=== PATIENT | female | born 2000 ===

== ENCOUNTER 2024-12-23 07:56 | Inpatient (IN) ==
[2024-12-23] MEDS ORDERED: LIDOCAINE 1% LOCAL 20 ML VIAL INFIL PRN (07:59)
--- NOTE | 2024-12-23 08:02 | History & Physical Report ---
Date of Service December 23, 2024 Assessment & Plan (1) Obesity affecting , antepartum: (2) Encounter for induction of labor: Plan admit, pitocin iol, epidural on demand, arom when indicated. fetus category one. anticipate . Admission and Anticipated Discharge Date Admission Date: December 23, 2024 History of Present Illness Chief Complaint: iol Primary Care Provider: NO PCP Patient is a 4yowf with iup at 39 5/7 weeks who is having iol for obesity. Notes good FM, occasional contractions. no lof. Had some VB last night after martinez placed, minimal today. Had a martinez bulb placed last night. and Delivery Plans Obesity (BMI 40 and higher @ beginning of ) *Growth US @ 32wks *Weekly NSTs @ 34wks *BMI 40 or greater offer detailed/level II anatomy at [facility] *BMI 40 or above offer delivery by [facility] - scheduled for 12/23/2024 *BMI 50 or greater scheduled detailed/level II anatomy at [facility] Late presentation @ 29+ weeks Current every day vaping Hep B nonimmune OB Labs: Blood Type O Positive 10/14/24 Antibody Screen NEGATIVE 10/14/24 Hgb 12.0 g/dl (12.0-16.0) 10/14/24 Hct 35.6 % (37.0-47.0) L 10/14/24 MCV 95.4 fL (80.0-100.0) 10/14/24 Plt Count 217 K/uL (130-400) 10/14/24 Rubella IgG Antibody Equivocal (Immune) L 10/14/24 Treponema pallidum Ab Negative (Negative) 10/14/24 Hep Bs Antigen Negative (Negative) 10/14/24 Hepatitis C Antibody Negative (Negative) 10/14/24 HIV 1&2 Ab/P24 Ag 4thGn Negative (Negative) 10/14/24 Glucose 1 Hr 50 gm 126 mg/dl (70-130) 10/14/24 OB Optional Labs: Chlamydia trachomatis RNA Not Detected (NotDetected) 10/14/24 Neisseria gonorrhoeae RNA Not Detected (NotDetected) 10/14/24 gbs neg Allergies Allergy/AdvReac Type Severity Reaction Status Date / Time No Known Allergies Allergy Verified 12/21/24 09:53 Home Medications Medication Instructions Recorded Confirmed Type PNV no.[id number] 1 tab PO DAILY 10/12/24 12/21/24 History [ Gummies] Patient History Medical History Varicella vaccination Surgical History S/P wisdom tooth extraction S/P tonsillectomy and adenoidectomy Family History Father Diabetes Grandmother (Paternal) Heart disease Denies family history of Ovarian cancer Breast cancer Colorectal cancer Social History Smoking Status: Current every day smoker Tobacco Type: E-cigarettes / Vaping Do You Dip or Chew Tobacco: No; Hx Alcohol Use: No Hx Substance Use: No marital status: marital status details: Vlad Oliveros (28) [phone] Current Living Situation: Spouse Current Living Situation Comment: lives with spouse, dogs current occupational status: employed current occupation: [employer] Feels Safe at Home: Yes OB History g1--present FOURTH MATE History noncontributory Physical Exam Constitutional: WD/WN, vitals as above Gastrointestinal (Abdomen): soft, gravid, obese Psychiatric: A+Ox3, euthymic affect Genitourinary: cx--3.5/75/-2/mid/soft toco--rare efm--145 with mod variability, accels to 160s no decels martinez was in on admission and removed with gentle tug. Coding Level of Care Code None Diagnoses Obesity affecting , antepartum O99.210 Encounter for induction of labor Z34.90
[2024-12-23 08:34] LABS: Hematocrit (blood only) 39.6 % (37.0-47.0); Hemoglobin 13.0 g/dl (12.0-16.0); Mean Corpuscular Hemoglobin 30.4 pg (25.0-34.0); Mean Corpuscular Volume 92.7 fL (80.0-100.0); Platelet Count 226 K/uL (130-400); RDW Standard Deviation 43.9 fL (36.4-46.3); Red Blood Count 4.27 M/uL (4.20-5.40); White Blood Count 15.34 K/ul (4.8-10.8)
[2024-12-23] MEDS: LACTATED RINGER'S 1,000 ML IV PRN (09:20)
[2024-12-23] MEDS: OXYTOCIN 30 UNITS/NSS 30 UNITS/500 ML BAG IV PRN ×2 (09:21→09:24)
--- NOTE | 2024-12-23 12:22 | Labor Progress Brief Note ---
Date of Service December 23, 2024 Subjective Patient noting contractions, but not wanting pain management at this time Assessment & Plan (1) Encounter for induction of labor: Plan continue current management. fetus category one. Admission and Anticipated Discharge Date Admission Date: December 23, 2024 Physical Exam Physical Exam: cx--3-4/80/-2 arom clear fluid toco--q1-3min, pit at 8 efm--140s with mod varaibility, accels to 160s, no decels Results & Data Vital Signs (Past 12 Hours) Vital Signs Temp Pulse Resp BP 12/23/24 11:42 70 12/23/24 11:42 113/54 L 12/23/24 10:36 64 12/23/24 10:36 109/58 L 12/23/24 10:30 18 12/23/24 10:30 36.7 C 18 12/23/24 09:27 73 12/23/24 09:27 117/57 L 12/23/24 08:11 37.2 C 102 H 18 108/60 Coding Level of Care Code None Diagnoses Encounter for induction of labor Z34.90
[2024-12-23] MEDS: fentANYL 2 MCG/ML BUPIVacaine 0.125%-NSS 100ML BAG ONE (18:00)
[2024-12-23] MEDS: LIDOCAINE 2%/EPINEPHRINE 1:200,000 20 ML PF ONE (18:00)
[2024-12-23] MEDS: BUPIVACAINE 0.25% PF 30 ML VIAL ONE (18:00)
--- NOTE | 2024-12-23 18:10 | Anesthesiology Consultation ---
Date of Service December 23, 2024 Assessment & Plan Chart Review Chart Review: Acceptable Risk for Labor Epidural Consults Requested none History Height/Weight Height: 5 ft 5 in Weight: 126.552 kg Allergies Allergy/AdvReac Type Severity Reaction Status Date / Time No Known Allergies Allergy Verified 12/21/24 09:53 Medications Home Medications Medication Instructions Recorded Confirmed Last Taken PNV no.[id number]-mdl-aylm 1 tab PO DAILY 10/12/24 12/23/24 12/23/24 [ Gummies] 0700 Active Medications Generic Name Dose Route Start Last Admin Trade Name Freq PRN Reason Stop Dose Admin Oxytocin 30 units in 500 mls @ 10 mls/hr 12/23/24 07:59 12/23/24 16:25 Pitocin 30 Units/Nss IV 12/25/24 07:58 0.6 units/hr .Q24H PRN 10 mls/hr Labor Induction/Augmentation Titration Protocol 0.6 UNITS/HR Lactated Ringer's 1,000 mls @ 125 mls/hr 12/23/24 07:59 12/23/24 13:53 Lr IV 12/25/24 07:58 125 mls/hr .Q8H PRN Administration L&D Protocol Protocol Past Medical History Medical History Varicella vaccination Past Family History Family History Father Diabetes Grandmother (Paternal) Heart disease Denies family history of Ovarian cancer Breast cancer Colorectal cancer Past Surgical History Surgical History S/P wisdom tooth extraction S/P tonsillectomy and adenoidectomy Social History Smoking Status: Current every day smoker Do You Dip or Chew Tobacco: No Hx Alcohol Use: No Hx Substance Use: No substance use type: does not use Physical Exam Vital Signs Last Vital Signs Temp 37.1 C 12/23/24 18:00 Pulse 69 12/23/24 18:07 Resp 18 12/23/24 18:00 BP 107/55 L 12/23/24 18:07 Pulse Ox 99 12/23/24 18:07 Testing Laboratory Results 12/23/24 08:04 Blood Type O Positive 12/23/24 08:04 Antibody Screen NEGATIVE 12/23/24 08:04
[2024-12-23] MEDS ORDERED: diphenhydrAMINE 50 MG/ML VIAL IV PRN (18:11)
[2024-12-23] MEDS ORDERED: NALOXONE HCL 0.4 MG/1 ML VIAL/CARP IV PRN (18:11)
[2024-12-23] MEDS ORDERED: SODIUM CHLORIDE 0.9% PF INJ 10 ML VIAL EPI PRN (18:11)
[2024-12-23] MEDS ORDERED: ROPIVACAINE 0.5% PF 5 MG/ML 20 ML VIAL EPI PRN (18:11)
[2024-12-23] MEDS ORDERED: NALBUPHINE HCL INJ 10 MG/ML AMP IV PRN (18:11)
[2024-12-23] MEDS ORDERED: NALOXONE HCL 1 MG in SODIUM CHLORIDE 0.9% 1,000 ML IV PRN (18:11)
[2024-12-23] MEDS ORDERED: BUPIVACAINE 0.25% PF 30 ML VIAL EPI PRN (18:11)
[2024-12-23] MEDS ORDERED: LIDOCAINE 2% MPF LOCAL 5 ML VIAL EPI PRN (18:11)
[2024-12-23] MEDS: BUPIVACAINE 0.25% PF 30 ML VIAL EPI STA (18:33)
[2024-12-23] MEDS: SODIUM CHLORIDE 0.9% PF INJ 10 ML VIAL ONE (18:33)
[2024-12-23] MEDS: LIDOCAINE 2%/EPINEPHRINE 1:200,000 20 ML PF EPI STA (18:34)
[2024-12-23] MEDS: SODIUM CHLORIDE 0.9% PF INJ 10 ML VIAL EPI STA (18:34)
--- NOTE | 2024-12-23 19:47 | Labor Progress Brief Note ---
Date of Service December 23, 2024 Subjective Comfortable with epidural. Assessment & Plan (1) Encounter for induction of labor: Plan: status reassuring, some cervical change since I first examined her this morning, and will assess for ongoing progress vs tolerance of the labor process. Not yet in active labor. No need to change plan at this time and pt agreeable to continue IOL. Admission and Anticipated Discharge Date Admission Date: December 23, 2024 Physical Exam Genitourinary: IUPC and FSE in place per request of patient and nursing team this morning. LOF clear. FHT Cat 1 [place] Q2-4, pit @ 10 Cervix 3.5/80/-2, which officially is not a change, however I note that prior exam this morning reported as the same was by a different physician. I do feel there has been some change between when I placed her IUPC/FSE earlier and now. It is not as much as I'd hoped, but the patient is not in active labor and only this afternoon reached the point of discomfort where she requested an epidural. Pelvic adequacy is estimated to be present, and I feel it is too early to diagnose a failed induction. Results & Data Vital Signs (Past 12 Hours) Vital Signs Temp Pulse Resp BP Pulse Ox 12/23/24 19:42 100 12/23/24 19:42 57 L 12/23/24 19:42 113/65 12/23/24 19:37 100 12/23/24 19:37 63 12/23/24 19:34 93 12/23/24 19:34 60 12/23/24 19:32 100 12/23/24 19:32 60 12/23/24 19:27 100 12/23/24 19:27 56 L 12/23/24 19:27 127/66 12/23/24 19:22 100 12/23/24 19:22 66 12/23/24 19:17 100 12/23/24 19:17 57 L 12/23/24 19:12 100 12/23/24 19:12 58 L 12/23/24 19:12 116/58 L 12/23/24 19:07 100 12/23/24 19:07 65 12/23/24 19:02 100 12/23/24 19:02 56 L 12/23/24 18:57 100 12/23/24 18:57 57 L 12/23/24 18:56 54 L 12/23/24 18:56 114/61 12/23/24 18:52 100 12/23/24 18:52 57 L 12/23/24 18:47 100 12/23/24 18:47 58 L 12/23/24 18:45 18 12/23/24 18:45 18 12/23/24 18:43 58 L 12/23/24 18:43 116/58 L 12/23/24 18:42 100 12/23/24 18:42 57 L 12/23/24 18:37 100 12/23/24 18:37 56 L 12/23/24 18:32 100 12/23/24 18:32 60 12/23/24 18:30 18 12/23/24 18:30 18 12/23/24 18:27 100 12/23/24 18:27 58 L 12/23/24 18:27 56 L 12/23/24 18:27 111/53 L 12/23/24 18:22 100 12/23/24 18:22 63 12/23/24 18:17 100 12/23/24 18:17 66 12/23/24 18:15 18 12/23/24 18:15 18 12/23/24 18:12 100 12/23/24 18:12 61 12/23/24 18:11 61 12/23/24 18:11 102/51 L 12/23/24 18:09 63 12/23/24 18:09 109/55 L 12/23/24 18:07 99 12/23/24 18:07 69 12/23/24 18:07 107/55 L 12/23/24 18:05 113/61 12/23/24 18:03 65 12/23/24 18:03 99/57 L 12/23/24 18:02 99 12/23/24 18:02 66 12/23/24 18:01 66 12/23/24 18:01 101/56 L 12/23/24 18:00 20 12/23/24 18:00 97.9 F 20 12/23/24 18:00 18 12/23/24 18:00 18 12/23/24 17:59 63 12/23/24 17:59 97/54 L 12/23/24 17:57 100 12/23/24 17:57 68 12/23/24 17:56 62 12/23/24 17:56 102/56 L 12/23/24 17:52 99 12/23/24 17:52 65 12/23/24 17:49 66 12/23/24 17:49 99/58 L 12/23/24 17:47 100 12/23/24 17:47 65 12/23/24 17:42 100 12/23/24 17:42 72 12/23/24 17:37 100 12/23/24 17:37 64 12/23/24 17:32 100 12/23/24 17:32 63 12/23/24 17:27 99 12/23/24 17:27 63 12/23/24 17:22 99 12/23/24 17:22 60 12/23/24 17:15 65 12/23/24 17:15 118/70 12/23/24 16:15 70 12/23/24 16:15 97/55 L 12/23/24 16:00 18 12/23/24 16:00 98.8 F 18 12/23/24 15:14 64 12/23/24 15:14 106/56 L 12/23/24 14:15 58 L 12/23/24 14:15 99/54 L 12/23/24 14:00 20 12/23/24 14:00 97.9 F 20 12/23/24 13:13 62 12/23/24 13:13 117/60 12/23/24 12:30 18 12/23/24 12:30 98.2 F 18 12/23/24 11:42 70 12/23/24 11:42 113/54 L 12/23/24 10:36 64 12/23/24 10:36 109/58 L 12/23/24 10:30 18 12/23/24 10:30 98.1 F 18 12/23/24 09:27 73 12/23/24 09:27 117/57 L 12/23/24 08:11 99.0 F 102 H 18 108/60 Coding Level of Care Code None Diagnoses Encounter for induction of labor Z34.90
[2024-12-24] MEDS: fentANYL 2 MCG/ML BUPIVacaine 0.125%-NSS 100ML BAG EPI PRN (03:45)
--- NOTE | 2024-12-24 10:37 | Labor Progress Brief Note ---
Date of Service December 24, 2024 Subjective confortable with epidural. May be feeling some intermittent pressure Assessment & Plan (1) Encounter for induction of labor: Plan going to start pushing and see how she does. fetus overall reassuring. I am concerned about the shape of her pelvis and the lack of descent of the fetus in the last two hours. Discussed that at this point she has to push the baby out and if not/no descent, will proceed with c/s. Hopefully baby will tolerate pushing. Admission and Anticipated Discharge Date Admission Date: December 23, 2024 Physical Exam Physical Exam: cx--c/c/0, can still feel a bit of cervix all the way around but the head is coming through toco--q2-3, pit at 11, did have another episode of hyperstim efm--140s with mod variability, accels present, decel with hyperstim but resolved with position change and fluids flat pubic arch Results & Data Vital Signs (Past 12 Hours) Vital Signs Temp Pulse Resp BP Pulse Ox 12/24/24 10:27 99 12/24/24 10:27 62 12/24/24 10:27 65 131/78 12/24/24 10:22 63 99 12/24/24 10:17 64 98 12/24/24 10:12 66 106/55 L 98 12/24/24 10:07 64 99 12/24/24 10:02 64 99 12/24/24 09:57 100 12/24/24 09:57 69 12/24/24 09:57 65 132/77 12/24/24 09:52 68 99 12/24/24 09:47 65 99 12/24/24 09:43 73 131/87 12/24/24 09:42 76 100 12/24/24 09:37 68 99 12/24/24 09:32 66 99 12/24/24 09:27 71 99 12/24/24 09:26 70 122/76 12/24/24 09:22 64 100 12/24/24 09:17 61 100 12/24/24 09:12 63 99 12/24/24 09:11 59 L 128/75 12/24/24 09:07 76 99 12/24/24 09:02 64 100 12/24/24 09:00 18 12/24/24 09:00 36.5 C 18 12/24/24 08:57 100 12/24/24 08:57 64 12/24/24 08:57 62 120/70 12/24/24 08:52 66 100 12/24/24 08:47 65 100 12/24/24 08:42 65 118/69 99 12/24/24 08:37 66 99 12/24/24 08:32 81 99 12/24/24 08:27 66 100 12/24/24 08:26 82 126/78 12/24/24 08:22 68 99 12/24/24 08:17 67 99 12/24/24 08:12 64 99 12/24/24 08:11 67 121/69 12/24/24 08:07 70 99 12/24/24 08:02 70 100 12/24/24 07:57 66 128/77 100 12/24/24 07:52 69 100 12/24/24 07:47 65 100 12/24/24 07:42 68 100 12/24/24 07:41 69 130/84 12/24/24 07:37 83 100 12/24/24 07:32 74 99 12/24/24 07:27 70 99 12/24/24 07:26 70 137/90 12/24/24 07:22 74 100 12/24/24 07:17 65 100 12/24/24 07:12 100 12/24/24 07:12 83 12/24/24 07:12 67 128/82 12/24/24 07:11 71 94 12/24/24 07:09 71 142/88 H 12/24/24 07:07 68 99 12/24/24 07:02 76 99 12/24/24 07:00 18 12/24/24 07:00 36.7 C 18 12/24/24 06:58 72 124/76 12/24/24 06:57 73 100 12/24/24 06:52 71 100 12/24/24 06:47 73 99 12/24/24 06:43 72 132/82 12/24/24 06:42 70 99 12/24/24 06:37 63 98 12/24/24 06:32 63 97 12/24/24 06:27 97 12/24/24 06:27 66 12/24/24 06:27 60 120/67 12/24/24 06:22 64 98 12/24/24 06:17 69 99 12/24/24 06:12 61 97 12/24/24 06:11 64 122/65 12/24/24 06:07 64 98 12/24/24 06:02 63 97 12/24/24 05:57 67 130/68 97 12/24/24 05:52 77 98 12/24/24 05:47 63 97 12/24/24 05:42 65 119/73 98 12/24/24 05:37 66 97 12/24/24 05:32 64 97 12/24/24 05:27 98 12/24/24 05:27 64 12/24/24 05:27 61 115/65 12/24/24 05:22 61 97 12/24/24 05:17 61 98 12/24/24 05:12 99 12/24/24 05:12 57 L 12/24/24 05:12 59 L 119/75 12/24/24 05:07 63 99 12/24/24 05:02 61 99 12/24/24 04:57 100 12/24/24 04:57 60 12/24/24 04:57 77 103/63 12/24/24 04:52 65 99 12/24/24 04:47 59 L 99 12/24/24 04:42 99 12/24/24 04:42 60 12/24/24 04:42 57 L 109/65 12/24/24 04:37 57 L 99 12/24/24 04:32 59 L 99 12/24/24 04:28 61 101/56 L 12/24/24 04:27 61 99 12/24/24 04:22 60 98 12/24/24 04:17 54 L 98 12/24/24 04:13 56 L 116/64 12/24/24 04:12 57 L 98 12/24/24 04:07 62 96 12/24/24 04:02 52 L 98 12/24/24 03:57 52 L 97 12/24/24 03:56 53 L 115/67 12/24/24 03:52 55 L 97 12/24/24 03:47 54 L 97 12/24/24 03:42 53 L 109/63 97 12/24/24 03:37 54 L 97 12/24/24 03:32 53 L 96 12/24/24 03:27 55 L 97 12/24/24 03:26 53 L 107/62 12/24/24 03:22 51 L 99 12/24/24 03:17 54 L 99 12/24/24 03:12 54 L 99 12/24/24 03:11 52 L 114/72 12/24/24 03:07 54 L 99 12/24/24 03:02 54 L 99 12/24/24 03:00 18 12/24/24 03:00 18 12/24/24 02:57 63 98 12/24/24 02:55 18 12/24/24 02:55 36.8 C 18 12/24/24 02:52 60 98 12/24/24 02:47 62 98 12/24/24 02:42 75 95 12/24/24 02:41 63 104/58 L 12/24/24 02:37 63 97 12/24/24 02:32 72 98 12/24/24 02:27 65 97 12/24/24 02:26 67 109/62 12/24/24 02:22 68 96 12/24/24 02:17 66 96 12/24/24 02:12 78 97 12/24/24 02:11 69 110/61 12/24/24 02:07 67 98 12/24/24 02:02 66 98 12/24/24 01:57 98 12/24/24 01:57 69 12/24/24 01:57 70 106/60 12/24/24 01:52 70 97 12/24/24 01:47 77 97 12/24/24 01:43 79 112/61 12/24/24 01:42 80 97 12/24/24 01:37 77 96 12/24/24 01:32 76 96 12/24/24 01:27 66 96 12/24/24 01:26 60 109/60 12/24/24 01:22 65 96 12/24/24 01:17 63 97 12/24/24 01:12 71 97 12/24/24 01:11 63 106/59 L 12/24/24 01:07 65 97 12/24/24 01:02 68 96 12/24/24 00:57 97 12/24/24 00:57 63 12/24/24 00:57 64 107/65 12/24/24 00:52 68 97 12/24/24 00:47 67 97 12/24/24 00:42 97 12/24/24 00:42 68 12/24/24 00:42 66 109/61 12/24/24 00:37 68 97 12/24/24 00:32 68 97 12/24/24 00:27 72 96 12/24/24 00:26 67 119/61 12/24/24 00:22 68 97 12/24/24 00:17 69 97 12/24/24 00:12 97 12/24/24 00:12 68 12/24/24 00:12 63 122/61 12/24/24 00:07 70 99 12/24/24 00:02 65 99 12/23/24 23:57 98 12/23/24 23:57 63 12/23/24 23:56 60 12/23/24 23:56 106/58 L 12/23/24 23:52 98 12/23/24 23:52 62 12/23/24 23:47 98 12/23/24 23:47 65 12/23/24 23:43 65 12/23/24 23:43 105/55 L 12/23/24 23:42 99 12/23/24 23:42 67 12/23/24 23:37 98 12/23/24 23:37 60 12/23/24 23:32 99 12/23/24 23:32 67 12/23/24 23:30 18 12/23/24 23:30 18 12/23/24 23:28 65 12/23/24 23:28 107/69 12/23/24 23:27 98 12/23/24 23:27 62 12/23/24 23:22 99 12/23/24 23:22 62 12/23/24 23:17 98 12/23/24 23:17 61 12/23/24 23:12 98 12/23/24 23:12 60 12/23/24 23:11 61 12/23/24 23:11 99/55 L 12/23/24 23:07 100 12/23/24 23:07 63 12/23/24 23:02 99 12/23/24 23:02 64 12/23/24 23:00 16 12/23/24 23:00 16 12/23/24 22:57 99 12/23/24 22:57 66 12/23/24 22:56 65 12/23/24 22:56 101/58 L 12/23/24 22:52 99 12/23/24 22:52 66 12/23/24 22:47 99 12/23/24 22:47 68 12/23/24 22:42 98 12/23/24 22:42 62 12/23/24 22:41 62 12/23/24 22:41 102/50 L 12/23/24 22:37 98 12/23/24 22:37 59 L Coding Level of Care Code None Diagnoses Encounter for induction of labor Z34.90
--- NOTE | 2024-12-24 11:39 | Labor Progress Brief Note ---
Date of Service December 24, 2024 Subjective pushing with good effort Assessment & Plan (1) Encounter for induction of labor: Plan making slow progress, fetus reassuring. Admission and Anticipated Discharge Date Admission Date: December 23, 2024 Physical Exam Physical Exam: cx--c/c+2 toco--q2-5min efm--150s wtih mod variability, variables with pushing. Results & Data Vital Signs (Past 12 Hours) Vital Signs Temp Pulse Resp BP Pulse Ox 12/24/24 11:34 69 96 12/24/24 11:26 76 126/67 12/24/24 11:23 88 87 L 12/24/24 11:18 92 H 91 12/24/24 11:13 89 L 12/24/24 11:13 84 12/24/24 11:13 84 94 12/24/24 11:12 77 123/75 12/24/24 11:07 95 12/24/24 11:07 86 12/24/24 11:07 73 92 12/24/24 11:02 97 12/24/24 11:02 74 12/24/24 11:02 72 92 12/24/24 11:00 22 12/24/24 11:00 37.1 C 22 12/24/24 10:57 96 12/24/24 10:57 67 12/24/24 10:57 70 123/59 L 12/24/24 10:55 80 93 12/24/24 10:52 68 98 12/24/24 10:47 68 97 12/24/24 10:42 72 99 12/24/24 10:41 68 122/70 12/24/24 10:37 64 100 12/24/24 10:32 73 100 12/24/24 10:27 99 12/24/24 10:27 62 12/24/24 10:27 65 131/78 12/24/24 10:22 63 99 12/24/24 10:17 64 98 12/24/24 10:12 66 106/55 L 98 12/24/24 10:07 64 99 12/24/24 10:02 64 99 12/24/24 09:57 100 12/24/24 09:57 69 12/24/24 09:57 65 132/77 12/24/24 09:52 68 99 12/24/24 09:47 65 99 12/24/24 09:43 73 131/87 12/24/24 09:42 76 100 12/24/24 09:37 68 99 12/24/24 09:32 66 99 12/24/24 09:27 71 99 12/24/24 09:26 70 122/76 12/24/24 09:22 64 100 12/24/24 09:17 61 100 12/24/24 09:12 63 99 12/24/24 09:11 59 L 128/75 12/24/24 09:07 76 99 12/24/24 09:02 64 100 12/24/24 09:00 18 12/24/24 09:00 36.5 C 18 12/24/24 08:57 100 12/24/24 08:57 64 12/24/24 08:57 62 120/70 12/24/24 08:52 66 100 12/24/24 08:47 65 100 12/24/24 08:42 65 118/69 99 12/24/24 08:37 66 99 12/24/24 08:32 81 99 12/24/24 08:27 66 100 12/24/24 08:26 82 126/78 12/24/24 08:22 68 99 12/24/24 08:17 67 99 12/24/24 08:12 64 99 12/24/24 08:11 67 121/69 12/24/24 08:07 70 99 12/24/24 08:02 70 100 12/24/24 07:57 66 128/77 100 12/24/24 07:52 69 100 12/24/24 07:47 65 100 12/24/24 07:42 68 100 12/24/24 07:41 69 130/84 12/24/24 07:37 83 100 12/24/24 07:32 74 99 12/24/24 07:27 70 99 12/24/24 07:26 70 137/90 12/24/24 07:22 74 100 12/24/24 07:17 65 100 12/24/24 07:12 100 12/24/24 07:12 83 12/24/24 07:12 67 128/82 12/24/24 07:11 71 94 12/24/24 07:09 71 142/88 H 12/24/24 07:07 68 99 12/24/24 07:02 76 99 12/24/24 07:00 18 12/24/24 07:00 36.7 C 18 12/24/24 06:58 72 124/76 12/24/24 06:57 73 100 12/24/24 06:52 71 100 12/24/24 06:47 73 99 12/24/24 06:43 72 132/82 12/24/24 06:42 70 99 12/24/24 06:37 63 98 12/24/24 06:32 63 97 12/24/24 06:27 97 12/24/24 06:27 66 12/24/24 06:27 60 120/67 12/24/24 06:22 64 98 12/24/24 06:17 69 99 12/24/24 06:12 61 97 12/24/24 06:11 64 122/65 12/24/24 06:07 64 98 12/24/24 06:02 63 97 12/24/24 05:57 67 130/68 97 12/24/24 05:52 77 98 12/24/24 05:47 63 97 12/24/24 05:42 65 119/73 98 12/24/24 05:37 66 97 12/24/24 05:32 64 97 12/24/24 05:27 98 12/24/24 05:27 64 12/24/24 05:27 61 115/65 12/24/24 05:22 61 97 12/24/24 05:17 61 98 12/24/24 05:12 99 12/24/24 05:12 57 L 12/24/24 05:12 59 L 119/75 12/24/24 05:07 63 99 12/24/24 05:02 61 99 12/24/24 04:57 100 12/24/24 04:57 60 12/24/24 04:57 77 103/63 12/24/24 04:52 65 99 12/24/24 04:47 59 L 99 12/24/24 04:42 99 12/24/24 04:42 60 12/24/24 04:42 57 L 109/65 12/24/24 04:37 57 L 99 12/24/24 04:32 59 L 99 12/24/24 04:28 61 101/56 L 12/24/24 04:27 61 99 12/24/24 04:22 60 98 12/24/24 04:17 54 L 98 12/24/24 04:13 56 L 116/64 12/24/24 04:12 57 L 98 12/24/24 04:07 62 96 12/24/24 04:02 52 L 98 12/24/24 03:57 52 L 97 12/24/24 03:56 53 L 115/67 12/24/24 03:52 55 L 97 12/24/24 03:47 54 L 97 12/24/24 03:42 53 L 109/63 97 12/24/24 03:37 54 L 97 12/24/24 03:32 53 L 96 12/24/24 03:27 55 L 97 12/24/24 03:26 53 L 107/62 12/24/24 03:22 51 L 99 12/24/24 03:17 54 L 99 12/24/24 03:12 54 L 99 12/24/24 03:11 52 L 114/72 12/24/24 03:07 54 L 99 12/24/24 03:02 54 L 99 12/24/24 03:00 18 12/24/24 03:00 18 12/24/24 02:57 63 98 12/24/24 02:55 18 12/24/24 02:55 36.8 C 18 12/24/24 02:52 60 98 12/24/24 02:47 62 98 12/24/24 02:42 75 95 12/24/24 02:41 63 104/58 L 12/24/24 02:37 63 97 12/24/24 02:32 72 98 12/24/24 02:27 65 97 12/24/24 02:26 67 109/62 12/24/24 02:22 68 96 12/24/24 02:17 66 96 12/24/24 02:12 78 97 12/24/24 02:11 69 110/61 12/24/24 02:07 67 98 12/24/24 02:02 66 98 12/24/24 01:57 98 12/24/24 01:57 69 12/24/24 01:57 70 106/60 12/24/24 01:52 70 97 12/24/24 01:47 77 97 12/24/24 01:43 79 112/61 12/24/24 01:42 80 97 12/24/24 01:37 77 96 12/24/24 01:32 76 96 12/24/24 01:27 66 96 12/24/24 01:26 60 109/60 12/24/24 01:22 65 96 12/24/24 01:17 63 97 12/24/24 01:12 71 97 12/24/24 01:11 63 106/59 L 12/24/24 01:07 65 97 12/24/24 01:02 68 96 12/24/24 00:57 97 12/24/24 00:57 63 12/24/24 00:57 64 107/65 12/24/24 00:52 68 97 12/24/24 00:47 67 97 12/24/24 00:42 97 12/24/24 00:42 68 12/24/24 00:42 66 109/61 12/24/24 00:37 68 97 12/24/24 00:32 68 97 12/24/24 00:27 72 96 12/24/24 00:26 67 119/61 12/24/24 00:22 68 97 12/24/24 00:17 69 97 12/24/24 00:12 97 12/24/24 00:12 68 12/24/24 00:12 63 122/61 12/24/24 00:07 70 99 12/24/24 00:02 65 99 12/23/24 23:57 98 12/23/24 23:57 63 12/23/24 23:56 60 12/23/24 23:56 106/58 L 12/23/24 23:52 98 12/23/24 23:52 62 12/23/24 23:47 98 12/23/24 23:47 65 12/23/24 23:43 65 12/23/24 23:43 105/55 L 12/23/24 23:42 99 12/23/24 23:42 67 Coding Level of Care Code None Diagnoses Encounter for induction of labor Z34.90
--- NOTE | 2024-12-24 12:19 | Delivery Summary ---
Vaginal Delivery Summary Date of Service December 24, 2024 Vaginal Delivery Summary and 1st Degree LAC (and right labial) Pre-operative Diagnosis: at 39 6/7 obesity Post-operative Diagnosis: same Procedure: martinez for cervical ripening pitocin induction arom fse/iupc right labial and first degree laceration and repair EBL: 100cc Anesthesia: epidural Procedure: The patient presented to labor and delivery for iol for obesity. She had martinez bulb placed and removed on am of admission. Underwent pitocin iol, arom, epidural. REquired iupc and fse for slow progress and monitoring. She eventually progressed to c/c/0. The patient pushed for about 1.5 hours to deliver a viable male infant in shannan position. The rest of the was then delivered without difficulty with a nuchal arm. The baby was vigorous. The nose and mouth were bulb suctioned and the was placed in the maternal abdomen for drying and attention. Cord was clamped and cut at one minute of life. Cord blood and segment obtained. Placenta delivered sp ontaneous, intact with a three vessel cord. Cervix/sulci/rectum were intact. A small first degree perineal laceration and right labial lac were5 repaired in the normal standard fashion. Hemostasis obtained with dilute pitocin and fundal massage. Apgars were pending. Mother and baby doing well at the end of the delivery. [facility] – [place] Vaginal Delivery Charge Delivery Type Details: and 1st Degree LAC (and right labial)
[2024-12-24] MEDS ORDERED: OXYTOCIN 30 UNITS/NSS 30 UNITS/500 ML BAG IV PRN (12:36)
[2024-12-24] MEDS ORDERED: HYDROCORTISONE ACETATE 25 MG SUPP PR PRN (12:36)
[2024-12-24] MEDS ORDERED: BENZOCAINE 20% SPRY 85 APPLN/85 GM CAN EXT PRN (12:36)
[2024-12-24] MEDS ORDERED: ACETAMINOPHEN 325 MG TAB PO PRN (12:36)
[2024-12-24] MEDS: IBUPROFEN 600 MG TAB PO PRN (13:20)
--- NOTE | 2024-12-24 13:24 | Anesthesia Procedure Note ---
Date of Service December 24, 2024 Anesthesia Post Epidural Note Vital Signs Vital Signs: Temp Pulse Resp BP Pulse Ox 37.1 C 67 20 124/72 98 12/24/24 11:00 12/24/24 13:14 12/24/24 11:30 12/24/24 13:14 12/24/24 11:59 Pain Intensity Perineal: Pain Intensity: 7 Notes Mental Status: alert / awake / arousable and participated in evaluation Nausea / Vomiting: adequately controlled Pain: adequately controlled Airway Patency, RR, SpO2: stable & adequate BP & HR: stable & adequate Hydration State: stable & adequate Neuraxial Anesthesia: was administered and sensory block is resolving Anesthetic Complications: no major complications apparent and Pt Satisfied with anesthetic care Epidural: Removed without complications and With tip intact
[2024-12-24] MEDS: DIPHTHER/TETAN/PERTUS Vaccine (Tdap, Adol/Adult) 0.5mL IM ONE (14:38)
[2024-12-24] MEDS: DOCUSATE SODIUM 100 MG CAP PO SCH (21:38)
[2024-12-25 07:45] LABS: Hematocrit (blood only) 32.1 % (37.0-47.0); Hemoglobin 10.1 g/dl (12.0-16.0)
[2024-12-25] MEDS: PRENATAL VITAMIN 1 TAB PO SCH (08:14)
--- NOTE | 2024-12-25 09:20 | Obstetrical Progress Note ---
Date of Service December 25, 2024 Assessment & Plan (1) Encounter for assessment: Plan Plan d/c home after dinner tonight to allow for education. Meeting milestones. Instructions given. f/u in 6 weeks. Day #:: 1 Subjective Ambulation: ambulating normally Voiding: no voiding problems Passing Gas:: Yes Diet Tolerance:: regular diet Lochia:: Small Feeding Type:: breast feeding Pain controlled. Anxious to get home. Physical Exam Constitutional WD/WN, vitals as above Respiratory normal respiratory effort, lungs clear to auscultation Cardiovascular RRR, no murmur, no edema Extremities: + edema (+1); no calf tenderness Gastrointestinal (Abdomen) obese, soft, nt, nd, ff/nt 2 below u Psychiatric A+Ox3, euthymic affect Results & Data Vital Signs (Past 12 Hours) Vital Signs Temp Pulse Resp BP Pulse Ox O2 Del Method 12/25/24 08:42 Room Air 12/25/24 03:30 36.5 C 70 16 120/80 Room Air 12/24/24 23:45 36.8 C 74 16 96/60 L 99 Room Air
[2024-12-25 13:58] VITALS: BP 121/81; PULSE 80; RESP 14; TEMP 98.2; O2SAT 99
== END 2024-12-25 17:30 | disposition home or self-care (01) | DRG 807 ==
LOC: 4S1 07:56 → 4E2 12-24 15:05